=== PATIENT | female | born 1940 | race Caucasian/White ===

== ENCOUNTER 2019-07-26 14:29 | Outpatient (CLI) | payer MEDICARE, SELFPAY ==
--- NOTE | ~2019-07-26 | MM_ITS ---
EXAMINATION: MM screening moshe BI w jim HISTORY: Screening mammogram TECHNIQUE: Craniocaudal and mediolateral oblique 3-D tomosynthesis images were obtained and synthetic 2-D images were generated. CAD analysis was submitted and interpreted. COMPARISON: No prior mammogram is available for comparison at this institution. BREAST PARENCHYMAL COMPOSITION: FINDINGS: Right breast upper outer and lower inner quadrant asymmetries are noted. Diagnostic right m ammogram and right breast ultrasound examination are recommended Otherwise there is no evidence of suspicious mass, calcification, or architectural distortion to sugg est malignancy in either breast. There has been no suspicious interval change. IMPRESSION: 1. Upper outer and lower inner quadrant right breast asymmetries 2. Diagnostic right mammogram and right breast ultrasound examination are recommended. BI-RADS Category 0: Incomplete: Needs additional imaging evaluation. Reviewed, dictated and finalized at location A. SSING UNIT OPERATOR IMPRESSION: 1. Upper outer and lower inner quadrant right breast asymmetries 2. Diagnostic right mammogram and right breast ultrasound examination are recom mended. BI-RADS Category 0: Incomplete: Needs additional imaging evaluation.
[2019-07-26 14:43] LABS: Basophils Absolute Auto 0.04 K/mm3 (0.00-0.10); Basophils Percent Auto 0.5 % (0.0-1.0); Eosinophils Absolute Auto 0.22 K/mm3 (0.02-0.50); Eosinophils Percent Auto 2.6 % (1.0-6.0); Hematocrit 31.8 % (35.0-42.0); Hemoglobin 9.7 g/dL (11.7-13.8); Immature Granulocyte Absolute 0.02 K/mm3 (0.00-0.00); Immature Granulocyte Percent A 0.2 % (0.0-0.0); Lymphocytes Absolute Auto 0.97 K/mm3 (1.10-4.50); Lymphocytes Percent Auto 11.4 % (18.0-42.0); Mean Corpuscular HGB Conc 30.5 g/dL (32.0-36.0); Mean Corpuscular Volume 91.6 fL (78.0-102.0); Mean Platelet Volume 8.8 fl (9.2-11.8); Monocytes Absolute Auto 0.86 K/mm3 (0.10-0.90); Monocytes Percent Auto 10.1 % (2.0-11.0); Neutrophils Absolute Auto 6.4 K/mm3 (1.7-7.2); Neutrophils Percent Auto 75.2 % (50.0-70.0); Platelet Count Result 279 K/mm3 (150-420); Red Blood Count 3.47 M/mm3 (4.20-5.40); Red Cell Distribution Width 24.9 % (11.6-14.4); White Blood Count 8.5 K/mm3 (4.8-10.8)
[2019-07-26 15:48] LABS: Alanine Aminotransferase 21 U/L (14-59); Albumin Level 3.4 g/dL (3.4-5.0); Alkaline Phosphatase 76 U/L (46-116); Anion Gap 15.4 mmol/L (7-16); Aspartate Amino Transferase 17 U/L (15-37); Bilirubin,Total 0.3 mg/dL (0.00-1.00); Blood Urea Nitrogen 40 mg/dL (7-18); Calcium 9.6 mg/dL (8.5-10.1); Carbon Dioxide 27 mmol/L (21-32); Chloride 105 mmol/L (98-108); Estimated Glomerular Filt Rate 32; Ferritin 82 ng/mL (8-252); Glucose 148 mg/dL (70-99); Iron 41 ug/dL (50-170); Osmolality Calculated 308 mOsm/kg (285-295); Percent Iron Saturation 16 % (12-57); Potassium 4.4 mmol/L (3.5-5.1); Sodium 143 mmol/L (136-145)
[2019-07-30 03:46] LABS: Transferrin 222 mg/dL (188-341)
[2019-08-01 13:41] LABS: Carcinoembryonic Antigen 5.9 ng/mL (0.0-2.4)
== END 2019-07-26 14:30 | disposition home or self-care (01) ==
LOC: CHSIMG 14:32
PROVIDERS: PCP Family Medicine; Visit Provider Family Medicine
DX: Z12.31 Encounter for screening mammogram for malignant neoplasm of breast (principal); C64.9 Malignant neoplasm of unspecified kidney, except renal pelvis; C18.0 Malignant neoplasm of cecum
CPT/HCPCS: 36415; 77063; 77067; 80053; 82378; 82728; 83540; 83550; 84466; 85025

== ENCOUNTER 2019-08-04 10:00 | Outpatient (CLI) | payer MEDICARE, SELFPAY ==
--- NOTE | ~2019-08-04 | MMUS_ITS ---
EXAMINATION: MM diagnostic mammo unilat RT, US breast RT limited HISTORY: Right breast asymmetries on screening mammogram TECHNIQUE: Additional 3-D tomosynthesis images of the right breast were performed and synthetic 2-D i mages were generated. CAD analysis was submitted and interpreted. High resolution limited right breas t ultrasound was performed. COMPARISON: 07/26/2019 FINDINGS: MAMMOGRAPHIC FINDINGS: No definite persistent asymmetry is identified in the outer right breast. There is a persistent 12 mm asymmetry in the middle third of the inner, slightly lower breast at the 4:00 location 5 cm from the nipple. ULTRASOUND: There is a 10 mm x 6 mm irregular, hypoechoic, parallel mass with indistinct margin, posterior shadow ing, increased surrounding echogenicity, and internal vascularity at the 4:00 location 4 cm from the nipple. IMPRESSION: 1. Suspicious mass at the 4:00 location of the right breast. 2. Ultrasound-guided biopsy is recommended. BI-RADS category 4, suspicious findings. Reviewed, dictated and finalized at location A. H TRIMMING MACHINE SETTER IMPRESSION: 1. Suspicious mass at the 4:00 location of the right breast. 2. Ultrasound-guided biopsy is recommended. BI-RADS category 4, suspicious findings.
== END 2019-08-04 10:01 | disposition home or self-care (01) ==
LOC: CHSIMG 10:02
PROVIDERS: PCP Family Medicine; Visit Provider Family Medicine
DX: R92.8 Other abnormal and inconclusive findings on diagnostic imaging of breast (principal)
CPT/HCPCS: 76642; 77065

== ENCOUNTER 2019-10-25 15:51 | Outpatient (CLI) | payer MEDICARE, SELFPAY ==
[2019-10-25 16:08] LABS: Basophils Absolute Auto 0.04 K/mm3 (0.00-0.10); Basophils Percent Auto 0.5 % (0.0-1.0); Eosinophils Absolute Auto 0.27 K/mm3 (0.02-0.50); Eosinophils Percent Auto 3.2 % (1.0-6.0); Hematocrit 31.8 % (35.0-42.0); Immature Granulocyte Absolute 0.04 K/mm3 (0.00-0.00); Immature Granulocyte Percent A 0.5 % (0.0-0.0); Lymphocytes Absolute Auto 1.09 K/mm3 (1.10-4.50); Lymphocytes Percent Auto 13.1 % (18.0-42.0); Mean Corpuscular HGB Conc 31.4 g/dL (32.0-36.0); Mean Corpuscular Hemoglobin 30.6 pg (27.0-31.0); Mean Corpuscular Volume 97.2 fL (78.0-102.0); Mean Platelet Volume 9.5 fl (9.2-11.8); Monocytes Absolute Auto 1.02 K/mm3 (0.10-0.90); Monocytes Percent Auto 12.2 % (2.0-11.0); Neutrophils Absolute Auto 5.9 K/mm3 (1.7-7.2); Neutrophils Percent Auto 70.5 % (50.0-70.0); Platelet Count Result 286 K/mm3 (150-420); Red Blood Count 3.27 M/mm3 (4.20-5.40); Red Cell Distribution Width 14.4 % (11.6-14.4); White Blood Count 8.3 K/mm3 (4.8-10.8)
[2019-10-25 17:39] LABS: Alanine Aminotransferase 21 U/L (14-59); Albumin Level 3.1 g/dL (3.4-5.0); Alkaline Phosphatase 69 U/L (46-116); Anion Gap 14.2 mmol/L (7-16); Aspartate Amino Transferase 17 U/L (15-37); Bilirubin,Total 0.2 mg/dL (0.00-1.00); Blood Urea Nitrogen 41 mg/dL (7-18); Calcium 9.8 mg/dL (8.5-10.1); Carbon Dioxide 30 mmol/L (21-32); Chloride 103 mmol/L (98-108); Estimated Glomerular Filt Rate 23; Ferritin 21 ng/mL (8-252); Glucose 150 mg/dL (70-99); Iron 56 ug/dL (50-170); Osmolality Calculated 307 mOsm/kg (285-295); Percent Iron Saturation 17 % (12-57); Potassium 5.2 mmol/L (3.5-5.1); Sodium 142 mmol/L (136-145); Total Protein 6.6 g/dL (6.4-8.2)
[2019-10-27 19:51] LABS: Transferrin 276 mg/dL (188-341)
== END 2019-10-25 15:52 | disposition home or self-care (01) ==
LOC: CHSLAB 15:53
PROVIDERS: PCP Family Medicine; Visit Provider Internal Medicine Hematology & Oncology
DX: D64.9 Anemia, unspecified (principal)
CPT/HCPCS: 36415; 80053; 82728; 83540; 83550; 84466; 85025

== ENCOUNTER 2020-01-08 10:04 | Inpatient (IN) | payer MEDICARE, SELFPAY ==
[2020-01-08] VITALS (7 sets, daily range): BP systolic 116–143; BP diastolic 55–79; PULSE 92–118; RESP 20–26; TEMP 35.9–36.9; O2SAT 74–94; BMI 31.4
--- NOTE | ~2020-01-08 | XR_ITS ---
EXAMINATION: XR chest 1V portable DATE: 01/08/2020 11:25 INDICATION: Shortness of breath. TECHNIQUE: A single frontal view of the chest was obtained. COMPARISON: Chest 2 views 09/25/2016, chest CT 01/03/2019 FINDINGS: There are lucencies in left upper lobe, consistent with emphysema. There are airspace opaci ties in all right lung zones and in left mid and lower lung zones. There is a small right pleural eff usion. No pneumothorax. The heart size is normal. IMPRESSION: 1. Diffuse lung disease, likely a combination of right upper lobe malignancy and bilateral mid and lo wer lung zone pneumonia versus treatment change versus malignancy. 2. Small right pleural effusion. 3. Emphysema. Reviewed, dictated and finalized at location A. IMPRESSION: 1. Diffuse lung disease, likely a combination of right upper lobe malignancy an d bilateral mid and lower lung zone pneumonia versus treatment change versus ma lignancy. 2. Small right pleural effusion. 3. Emphysema.
--- NOTE | ~2020-01-08 | CT_ITS ---
EXAMINATION: CT chest high resolution wo oh DATE: 01/08/2020 12:40 INDICATION: Shortness of breath, abnormal chest x-ray, TECHNIQUE: Computed tomography (CT) of the chest was performed without intravenous contrast. The dose -length product (DLP) was 652.14 mGy-cm. Automated exposure control and iterative reconstruction tech [employer] were employed. COMPARISON: 01/03/2019 FINDINGS: There is near complete opacification of the right middle and upper lobes. Airspace opacitie s are present to a lesser degree in the right lower lobe. There is a 2.2 x 1.6 cm nodule of the right lower lobe. There are airspace opacities of the lingula and posterior medial aspect of the left lowe r lobe. Nodules of the left lower lobe measure up to 10 mm. There is mediastinal lymphadenopathy. For instance a precarinal lymph node measures 1.6 cm in short axis. The heart size is normal. There is a moderate size right pleural effusion. No pneumothorax is identified. There is severe thoracic spondy losis. A 4.2 cm cyst is noted in the upper pole of the left kidney. IMPRESSION: 1. Diffuse lung disease as detailed above likely reflecting a combination of malignancy and pneumonia . 2. Pulmonary nodules, consistent with metastatic disease. 3. Mediastinal lymphadenopathy, reactive versus metastatic. Reviewed, dictated and finalized at location B. IMPRESSION: 1. Diffuse lung disease as detailed above likely reflecting a combination of ma lignancy and pneumonia. 2. Pulmonary nodules, consistent with metastatic disease. 3. Mediastinal lymphadenopathy, reactive versus metastatic.
--- NOTE | 2020-01-08 10:50 | ECG_ITS ---
Measurements Intervals Soso Rate: 116 P: 47 FL: 164 QRS: -9 QRSD: 78 T: 44 QT: 308 QTc: 430 Interpretive Statements SINUS TACHYCARDIA ATRIAL PREMATURE COMPLEXES DELAYED PRECORDIAL R/S TRANSITION BASELINE ARTIFACT- I, II, III, AVR, AVL, AVF, V1-V6 ABNORMAL ECG Electronically Signed On 01-08-2020 11:19:37 CDT by Manuel Couch D.O.
--- NOTE | 2020-01-08 10:53 | ED.SOB ---
HPI - SOB/Dyspnea General Source: patient and family (Cheryl Duran, [id number], MPOA) Mode of arrival: wheelchair Limitations: no limitations and clinical condition History of Present Illness HPI Narrative: 79-year-old female with COPD, history of colon cancer, and recent lung biopsy of newly developed mass. One month ago she had a PET scan which showed lung and pleural lesions and cervical node lesions. Lung biopsy was done of a lung lesion; results are pending. She is followed by Dr. Fitzpatrick, [facility]. Three days ago she started feeling cold and having chills. Today her breathing was worse and she was weak, unable to get out of her bed. She feels rattling in her chest which is new. She has a morning cough which has not recently worsened. She has no history of coronary artery disease, congestive heart failure, DVT or pulmonary emboli. In August of 2018 she was diagnosed with lung cancer (treated with radiation), colon and right kidney cancer treated with partial colectomy and right nephrectomy. Earlier this year she was diagnosed with right breast cancer which is currently not being treated. 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 She is taking apixaban 5 mg BID Related Data Home Medications Medication Instructions Recorded Confirmed anastrozole 1 mg PO DAILY 01/08/20 01/08/20 apixaban [Eliquis] 5 mg PO BID 01/08/20 01/08/20 atorvastatin 20 mg PO DAILY 01/08/20 01/08/20 calcitriol 0.5 mcg PO DAILY 01/08/20 01/08/20 wiynxybtagc-lbnefqjqq-antwtoyl 100 inh INHALATION DAILY 01/08/20 01/08/20 [Trelegy Ellipta] gabapentin 300 mg PO BID 01/08/20 01/08/20 levothyroxine 75 mcg PO DAILY 01/08/20 01/08/20 metformin 500 mg PO BID 01/08/20 01/08/20 pantoprazole 40 mg PO BID 01/08/20 01/08/20 tamsulosin 0.4 mg PO DAILY 01/08/20 01/08/20 Allergies Allergy/AdvReac Type Severity Reaction Status Date / Time furosemide [Lasix] Allergy Intermediate dizziness Verified 01/08/20 10:38 bacitracin Allergy Rash Verified 01/08/20 10:37 [From Neosporin ([id number])] neomycin Allergy Rash Verified 01/08/20 10:37 [From Neosporin ([id number])] polymyxin B Allergy Rash Verified 01/08/20 10:37 [From Neosporin ([id number])] Review of Systems Constitutional: Constitutional: Denies fever(s) Comments: Her eating and drinking fluids is decreased. ENT: Denies dysphagia, Denies dizziness and Denies sore throat Cardiovascular: Cardiovascular: Denies chest pain Respiratory: Respiratory: Reports no additional respiratory complaints Gastrointestinal: Gastrointestinal: Denies abdominal pain, Denies constipation, Denies diarrhea and Denies nausea Genitourinary: Genitourinary: Denies dysuria Musculoskeletal: Musculoskeletal: Reports no additional musculoskeletal complaints Integumentary/Breasts: Comments: Asymptomatic rash under left breast, noticed this AM. Neurologic: Denies headache(s) and Denies focal weakness Psychiatric: Psychiatric: Denies anxiety and Denies depression Hematologic/Lymphatic: Hematologic/Lymphatic: Denies easy bruising Allergic/Immunologic: Allergic/Immunologic: Denies lip swelling PMFSH Past Medical History Medical History (Updated 01/08/20 @ 18:32 by Karishma Ackerman NP) Breast cancer Colon cancer Diabetes mellitus Hypothyroidism Kidney malignancy Lung cancer Surgical History Surgical History (Updated 01/09/20 @ 05:16 by Moy Carolina MD) History of nephrectomy History of partial colectomy Social History Social History Smoking status: Current every day smoker Alcohol intake: never Substance use: never Living arrangements: alone Gender identity (if verbalized by the patient): Female Spiritual care concerns: No Exam Narrative: Exam Narrative: Wearing a mask, 02 at 10 literse Const: Orientation/consciousness: patient oriented x3 HENMT: Mouth: Yes mary
[2020-01-08 11:20] LABS: Base Excess ABG -2.1 mmol/L (0-2); HCO3 ABG 25.3 mmol/L (23-29); Oxygen Content ABG 11.7 %vol (16.0-22.0); Oxygen Saturation ABG 89.3 % (95-97); Oxyhemoglobin 88.5 % (94-100); PCO2 ABG 57.7 mmHg (35-45); PO2 ABG 66.9 mmHg (75-85); Total Hemoglobin 9.3 g/dL; pH ABG 7.26 (7.35-7.45)
[2020-01-08 11:24] LABS: Basophils Absolute Auto 0.02 K/mm3 (0.00-0.10); Basophils Percent Auto 0.1 % (0.0-1.0); Eosinophils Absolute Auto 0.04 K/mm3 (0.02-0.50); Eosinophils Percent Auto 0.3 % (1.0-6.0); Hematocrit 35.6 % (35.0-42.0); Immature Granulocyte Percent A 0.7 % (0.0-0.0); Lymphocytes Absolute Auto 0.71 K/mm3 (1.10-4.50); Lymphocytes Percent Auto 4.9 % (18.0-42.0); Mean Corpuscular HGB Conc 30.9 g/dL (32.0-36.0); Mean Platelet Volume 9.8 fl (9.2-11.8); Monocytes Absolute Auto 1.22 K/mm3 (0.10-0.90); Monocytes Percent Auto 8.4 % (2.0-11.0); Neutrophils Absolute Auto 12.5 K/mm3 (1.7-7.2); Neutrophils Percent Auto 85.6 % (50.0-70.0); Platelet Count Result 332 K/mm3 (150-420); Red Blood Count 3.67 M/mm3 (4.20-5.40); Red Cell Distribution Width 16.3 % (11.6-14.4); White Blood Count 14.6 K/mm3 (4.8-10.8)
[2020-01-08 11:26] LABS: Device SIMPLE MASK; Modified Allen's Test Pass; Site Drawn RIGHT RADIAL
[2020-01-08 11:39] LABS: Influenza Control Valid (Valid); Lactic Acid 1.3 mmol/L (0.4-2.0)
[2020-01-08 11:41] LABS: Alanine Aminotransferase 28 U/L (14-59); Albumin Level 2.5 g/dL (3.4-5.0); Alkaline Phosphatase 97 U/L (46-116); Aspartate Amino Transferase 30 U/L (15-37); Bilirubin,Total 0.6 mg/dL (0.00-1.00); Blood Urea Nitrogen 33 mg/dL (7-18); Calcium 10.4 mg/dL (8.5-10.1); Carbon Dioxide 30 mmol/L (21-32); Chloride 102 mmol/L (98-108); Estimated CRCL calculation 23 ml/min; Estimated Glomerular Filt Rate 25; Glucose 174 mg/dL (70-99); Magnesium 1.5 mg/dL (1.8-2.4); Osmolality Calculated 301 mOsm/kg (285-295); Sodium 140 mmol/L (136-145); Total Protein 8.3 g/dL (6.4-8.2)
[2020-01-08 11:42] LABS: D Dimer 6.14 mg/L (0.19-0.50); Troponin I < 0.02 ng/mL (0.00-0.056)
[2020-01-08 11:45] LABS: BNP 749 pg/mL (0-100)
[2020-01-08 12:20] LABS: Add Urine Microscopic? YES; Appearance Urine Cloudy (Clear); Bilirubin Urine Negative (Negative); Blood Urine 2+ (Negative); Color Urine Yellow (Yellow); Glucose Urine UA Negative (Negative); Ketones Urine Negative (Negative); Leukocyte Esterase Ur 2+ (Negative); Nitrate Urine Negative (Negative); Protein Urine 2+ (Negative); Specific Grav Ur >= 1.030 (1.010-1.020); Urobilinogen Urine 0.2 mg/dL (0.2-1.0); pH Urine 5.5 (5.0-8.0)
[2020-01-08 12:27] LABS: WBC Urine 51-75 /hpf (0-3)
[2020-01-08 12:28] LABS: Bacteria Urine 4+ /hpf; Squamous Epithelial Cell Urine Few /hpf (Few); Transitional Epi Cells Urine Few /hpf
[2020-01-08] MEDS: methylPREDNISolone SOD SUCC 125 MG VIAL IV PUSH (12:53)
[2020-01-08] MEDS: LACTATED RINGERS 1,000 ML 999 ML IV CONT (12:55)
[2020-01-08] MEDS: ALBUTEROL SULFATE (*SP) INHALER 8 PUFF INHALATION (13:09)
--- NOTE | 2020-01-08 14:50 | PC.NURSE ---
Patient brought to floor per stretcher. Transferred to bed with 2 assist. Patient wearing O2 at 10L per simple mask, HOB elevated 30 degrees, lying on right side. SPO2 94%Patient oriented to room and call light
--- NOTE | 2020-01-08 15:41 | PM.IMHP ---
H&P: HPI History of Present Illness Chief complaint: PNEUMONIA <Karishma Ackerman, HUNTER TRAPPER - Last Filed: 01/08/20 18:54> Narrative: Kimmie Dong is a 79 year old female admitted with shortness of breath, dyspnea, weakness through the emergency room. She arrive by wheelchair and was accompanied by her family, Cheryl her vafgwuih-up-mxb and medical power of assistant prosecuting attorney. She has a history of COPD, history of colon cancer with resection, kidney cancer with removal, breast cancer, cervical nodes cancer, and recent lung biopsy of newly developed right mass. One month ago, her radiologist completed a PET scan which showed lung and pleural lesions and cervical node lesions. Lung biopsy was done of a lung lesion; results are pending. She is followed by Dr. Fitzpatrick, [facility]. Kimmie uses 3 L of oxygen at home chronically for her COPD. Her SpO2 was around 74%. Kimmie has anemia with a hemoglobin of 11. Her white blood cell count is 14.6, her magnesium is 1.5, her lactic acid is 1.3. Her ABG in the ED are was showing respiratory acidosis with a pH of 7.27, pCO2 57, PO2 of 66, bicarb of 25 while on 10 L O2 Simple mask. She is currently requiring 10 L of oxygen in the ER and was diagnosed as having pneumonia. Dr. Carolina started her on azithromycin and Rocephin, Methylprednisone IV, albuterol treatments, negative for influenza A and B,and pending COVID swab testing results. Troponin x1 is WNL. She has an elevated D-dimer 0f 6.14 but is already on Eliquis twice a day, there is no reason to complete a V/Q scan at this time. Dr. Carolina also held her metformin and ordered a CT scan without contrast. UA showed evidence of UTI with 2+ leukocytes, 50-75 white blood cells, and 4+ bacteria. Her creatinine is 1.9 to an elevated, GFR is low at 25 and her BUN is 33. She may have chronic kidney disease due to diabetes; her glucose is 174. CT scan FINDINGS: There is near complete opacification of the right middle and upper lobes. Airspace opacities are present to a lesser degree in the right lower lobe. There is a 2.2 x 1.6 cm nodule of the right lower lobe. There are airspace opacities of the lingula and posterior medial aspect of the left lower lobe. Nodules of the left lower lobe measure up to 10 mm. There is mediastinal lymphadenopathy. For instance a precarinal lymph node measures 1.6 cm in short axis. The heart size is normal. There is a moderate size right pleural effusion. No pneumothorax is identified. There is severe thoracic spondylosis. A 4.2 cm cyst is noted in the upper pole of the left kidney.IMPRESSION:1. Diffuse lung disease as detailed above likely reflecting a combination of malignancy and pneumonia.2. Pulmonary nodules, consistent with metastatic disease.3. Mediastinal lymphadenopathy, reactive versus metastatic. Three days ago she started feeling cold and having chills. Today her breathing was worse and she was weak, unable to get out of her bed. She feels rattling in her chest which is new. She has a morning cough which has not recently worsened. She has NO history of coronary artery disease, congestive heart failure, DVT or pulmonary emboli. But her BNP is elevated at 749. In August of 2018 she was diagnosed with lung cancer (treated with radiation), colon and right kidney cancer treated with partial colectomy and right nephrectomy. Earlier this year she was diagnosed with right breast cancer which is currently not being treated. 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 She is taking apixaban 5 mg BID. EKG : tachycardia, PACs, ST depression, normal QT and left axis. The patient and her family have both agreed to a long-term placement after discharge. They have also completed and signed paperwork to make her code a do not resuscitate status. Will consult hospice to have a discussion and meeting. Her Primary Care Provider is Eliseo Thakur MD. <Karishma Ackerman, SOBIA - Last Filed: 01/08/20 18:54> Review of Sy
[2020-01-08] MEDS: PANTOPRAZOLE 40 MG TABLET PO (16:09)
[2020-01-08] MEDS: GABAPENTIN 300 MG CAPSULE PO (16:09)
--- NOTE | 2020-01-08 20:35 | PC.NURSE ---
Patient lying on right side in bed. Responds to name. Denies discomfort. Did not eat any supper tray. SP02 at 92% on 10 liters and simple mask.
--- NOTE | 2020-01-08 22:38 | PC.NURSE ---
MD updated on patient's DNR status and updated on her current status. MD stated he understood and has no new orders. Nursing to update with any changes of status.
--- NOTE | 2020-01-08 23:30 | PC.NURSE ---
Patients O2 sats at 88%. Patient did not respond to sternal rubbing. No urination at this time.
[2020-01-08 23:32] LABS: Glucose Point of Care 195 (65-105)
[2020-01-08] MEDS: MAGNESIUM SULF 4 GM/WATER100ML 4 GM/100 ML BAG 100 GM (23:40)
[2020-01-09] VITALS: BP 118/70; PULSE 82; PULSE 85; RESP 14; TEMP 35.9; O2SAT 87
--- NOTE | 2020-01-09 02:59 | PC.NURSE ---
Patient did not respond to name. Was moving her head independently. Respirations deep; accessory muscles and grunting respirations. Wet depends and small amount of loose stools. Cleaned and positioned on right side for comfort. SPO2 drop when on back or left side.
--- NOTE | 2020-01-09 03:03 | PC.NURSE ---
Doctor up to see patient and aware of condition.
[2020-01-09 03:51] VITALS: PULSE 85
[2020-01-09 03:52] VITALS: BP 134/86; PULSE 85; RESP 14; TEMP 35.4; O2SAT 83
[2020-01-09] MEDS: methylPREDNISolone SOD SUCC 125 MG VIAL 80 MG IV PUSH (05:47)
[2020-01-09 06:03] LABS: Hematocrit 41.5 % (35.0-42.0); Hemoglobin 11.8 g/dL (11.7-13.8); Mean Corpuscular HGB Conc 28.4 g/dL (32.0-36.0); Mean Corpuscular Hemoglobin 29.2 pg (27.0-31.0); Mean Corpuscular Volume 102.7 fL (78.0-102.0); Mean Platelet Volume 9.8 fl (9.2-11.8); Platelet Count Result 415 K/mm3 (150-420); Red Blood Count 4.04 M/mm3 (4.20-5.40); Red Cell Distribution Width 16.2 % (11.6-14.4)
--- NOTE | 2020-01-09 06:10 | PC.NURSE ---
Attempted to call daughter to report change in condition. No answer and unable to leave message
[2020-01-09 06:21] LABS: White Blood Count 20.3 K/mm3 (4.8-10.8)
--- NOTE | 2020-01-09 06:23 | PC.NURSE ---
Dr. Carolina contacted about pt's high critical WBC of 20.3. No new orders at this time.
--- NOTE | 2020-01-09 06:31 | PC.NURSE ---
Contacted daughter in law Cheryl Jaydarian to inform her of change in condition
[2020-01-09 06:39] LABS: Blood Urea Nitrogen 37 mg/dL (7-18); Calcium 10.8 mg/dL (8.5-10.1); Carbon Dioxide 33 mmol/L (21-32); Estimated CRCL calculation 23 ml/min; Estimated Glomerular Filt Rate 26; Glucose 246 mg/dL (70-99)
[2020-01-09 06:40] LABS: BNP 3610 pg/mL (0-100)
[2020-01-09 07:15] VITALS: BP 161/83; PULSE 86; RESP 16; TEMP 35; O2SAT 68
--- NOTE | 2020-01-09 07:30 | PC.NURSE ---
Daughter allowed to visit, informed regarding pending covid testing, agreeable to wear gown, goggles and n 95 face mask while in room, agonal breathing noted, color mottled, unresponsive, re positioned, hospitalist aware of decline in condition, DNR on chart
[2020-01-09 07:32] LABS: Glucose Point of Care 261 (65-105)
--- NOTE | 2020-01-09 08:00 | PC.NURSE ---
No change, monitor noted to have episodes in the 40s's but increase to the 60-70's, daughter remains in at bedside
--- NOTE | 2020-01-09 08:40 | PC.NURSE ---
heart rate continues to stay lower, 30's at this time, carping respirations noted, daughter at the bedside and informed of decline in condition
--- NOTE | 2020-01-09 08:46 | PC.NURSE ---
No respirations noted, mottled, no heart rate detected, hospitalist and physician notified of time of , daughter in room
[2020-01-09 09:37] LABS: Anion Gap 12.5 mmol/L (7-16); Chloride 102 mmol/L (98-108); Osmolality Calculated 310 mOsm/kg (285-295); Potassium 5.5 mmol/L (3.5-5.1); Sodium 142 mmol/L (136-145)
--- NOTE | 2020-01-09 09:56 | PC.NURSE ---
Dr. Brody office notified of time of .
--- NOTE | 2020-01-09 09:58 | PC.NURSE ---
0940 Daughter and son left. Only belongings they wanted was cell phone and ware server. PJ's and house shoes could be thrown away per daughter.
--- NOTE | 2020-01-09 09:59 | PC.NURSE ---
Body double bagged and ready for home.
--- NOTE | 2020-01-09 11:07 | PC.NURSE ---
1105 Staff from [facility]. Body released to them. Sheet signed in chart.
--- NOTE | 2020-01-09 13:15 | PM.DS ---
DS: Admitting Diagnosis Admitting Diagnosis Admitting Diagnosis: Pneumonia, unspecified organism DS: Discharge Diagnosis Discharge Diagnosis (1) Acute respiratory failure with hypoxia and hypercapnia: Code(s): J96.01 - Acute respiratory failure with hypoxia; J96.02 - Acute respiratory failure with hypercapnia Status: Acute Assessment and Plan: admitted with shortness of breath, dyspnea, weakness through the emergency room. history of COPD, history of colon cancer with resection, kidney cancer with removal, breast cancer, cervical nodes cancer, and recent lung biopsy of newly developed right mass. PET scan shows lung and pleural lesions and cervical node lesions. Lung biopsy was done of a lung lesion; results are pending. She is followed by Dr. Fitzpatrick [facility]. uses 3 L of oxygen at home chronically for her COPD. Her SpO2 was around 74%. ABG in the ED was showing respiratory acidosis with a pH of 7.27, pCO2 57, PO2 of 66, bicarb of 25 while on 10 L O2 Simple mask. She is currently requiring 10 L of oxygen anemia with a hemoglobin of 11. white blood cell count is 14.6 Yesterday, patient decided upon Comfort Care and requested meeting with Hospice for today. Patient did not improve overnight, despite medical interventions, therapies, and medications. Daughter aware and is sitting at bedside, updated her on the plan. (2) Cancer, metastatic: Code(s): C79.9 - Secondary malignant neoplasm of unspecified site Status: Acute Assessment and Plan: history of COPD, history of colon cancer with resection, kidney cancer with removal, breast cancer, cervical nodes cancer, and recent lung biopsy of newly developed right mass. One month ago, her radiologist completed a PET scan which showed lung and pleural lesions and cervical node lesions. Lung biopsy was done of a lung lesion; results are pending. She is followed by Dr. Fitzpatrick [facility]. uses 3 L of oxygen at home chronically for her COPD. Her SpO2 was around 74%. anemia with a hemoglobin of 11. Her white blood cell count is 14.6, lactic acid is 1.3. Troponin x1 is WNL. elevated D-dimer 0f 6.14 but is already on Eliquis twice a day, August of 2018 she was diagnosed with lung cancer (treated with radiation), colon and right kidney cancer treated with partial colectomy and right nephrectomy. Earlier this year she was diagnosed with right breast cancer which is currently not being treated. CVA last year resulting in some loss of sight. taking apixaban 5 mg BID. patient completed and signed a DNR, it is in her chart Patient decided upon Comfort Care and requested meeting with Hospice for today. Daughter aware and is sitting at bedside, updated her on the plan. Primary Care Provider is Eliseo Thakur MD. (3) Pneumonia: Qualifiers: Laterality: right Lung location: middle lobe of lung Pneumonia type: due to unspecified organism Qualified Code(s): J18.9 - Pneumonia, unspecified organism Code(s): J18.9 - Pneumonia, unspecified organism Status: Acute Assessment and Plan: admitted with shortness of breath, dyspnea, weakness history of COPD, history of colon cancer with resection, kidney cancer with removal, breast cancer, cervical nodes cancer, and recent lung biopsy of newly developed right mass. PET scan which showed lung and pleural lesions and cervical node lesions. Lung biopsy was done of a lung lesion; results are pending. She is followed by Dr. Fitzpatrick, [facility]. uses 3 L of oxygen at home chronically for her COPD. Her SpO2 was around 74%. ABG in the ED are was showing respiratory acidosis with a pH of 7.27, pCO2 57, PO2 of 66, bicarb of 25 while on 10 L O2 Simple mask. currently requiring [address] scan FINDINGS: There is near complete opacification of the right middle and upper lobes. Airspace opacities are present to a lesser degree in the right lower lobe. T
--- NOTE | 2020-01-10 00:41 | PM.EVENT ---
Event Note Event Note Event Note: For 01/09/2020: Patient was noted at 8:46 a.m. to be unresponsive. Telemetry was showing asystole. Examined the patient shortly thereafter and found her to be unresponsive, having no pupillary or doll's eye reflex, be pulseless and had no precordial sounds or respiratory effort. I reviewed the chart and examined the patient. I discussed the patient's care with A Tyron LEY and agree with her assessment and plan.
== END 2020-01-09 08:46 | disposition expired | DRG 193 ==
LOC: CHSED 13:14 → CHS2ND 13:29
PROVIDERS: Nurse Practitioner; Admitting Provider Family Medicine; Emergency Provider Family Medicine; PCP Family Medicine; Visit Provider Family Medicine
DX: J18.9 Pneumonia, unspecified organism (principal); N30.00 Acute cystitis without hematuria; J44.9 Chronic obstructive pulmonary disease, unspecified; C50.911 Malignant neoplasm of unspecified site of right female breast; R91.1 Solitary pulmonary nodule; I69.398 Other sequelae of cerebral infarction; H53.8 Other visual disturbances; E11.9 Type 2 diabetes mellitus without complications; E03.9 Hypothyroidism, unspecified; F17.200 Nicotine dependence, unspecified, uncomplicated; Z85.528 Personal history of other malignant neoplasm of kidney; Z85.038 Personal history of other malignant neoplasm of large intestine; J96.01 Acute respiratory failure with hypoxia; C34.90 Malignant neoplasm of unspecified part of unspecified bronchus or lung; N39.0 Urinary tract infection, site not specified; N17.9 Acute kidney failure, unspecified; N18.9 Chronic kidney disease, unspecified; E83.42 Hypomagnesemia; E11.22 Type 2 diabetes mellitus with diabetic chronic kidney disease; H53.9 Unspecified visual disturbance; Z99.81 Dependence on supplemental oxygen
CPT/HCPCS: 36415; 36600; 71045; 71250; 80048; 80053; 81001; 82805; 83605; 83735; 83880; 84484; 85025; 85027; 85380; 87040; 87077; 87086; 87088; 87186; 87635; 87804; 93005; 94010; 96365; 96375; 99285; A9270; C9803; J0456; J0696; J1956; J2930; J3475; J7120; U0003